=== PATIENT | male | born 1965 | race Caucasian/White ===

== ENCOUNTER 2020-08-31 07:01 | Emergency (ER) | payer OTHER ==
[2020-08-31 08:27] LABS: BASOPHIL 0.3 % (0-2); EOSINOPHIL 1.7 % (0-5); HCT 44.5 % (42.0-52.0); HGB 14.6 g/dl (13.2-18.0); LYMPHOCYTE 22.5 % (15-48); MCH 29.7 pg (25.0-31.0); MCHC 32.8 g/dL (32.0-36.0); MCV 90.4 fL (78.0-100.0); MONOCYTE 9.3 % (0-12); NRBC 0; PLT 167 K/uL (150-400); RBC 4.92 M/uL (4.70-6.00); RDW 12.9 % (11.5-14.0); WBC 8.6 K/uL (4.0-10.5)
[2020-08-31 08:29] LABS: BILIRUBIN NEGATIVE (NEGATIVE); BLOOD NEGATIVE Ery/uL (NEGATIVE); CLARITY CLEAR (CLEAR); COLOR YELLOW (YELLOW); GLUCOSE (U) NORMAL (NORMAL); LEUKOCYTES NEGATIVE Leu/uL (NEGATIVE); NITRITE NEGATIVE (NEGATIVE); PROTEIN NEGATIVE (NEGATIVE); SPECIFIC GRAVITY <=1.005 (1.001-1.030); UROBILINOGEN 0.2 mg/dL (0.2-1.0)
[2020-08-31 08:58] LABS: ALBUMIN 3.4 g/dL (3.4-5.0); ALKALINE PHOSHATASE 82 U/L (46-116); ALT 23 U/L (16-63); AST 15 U/L (15-37); BILIRUBIN - TOTAL 0.5 mg/dL (0.2-1.0); BUN 15 mg/dL (7-18); BUN/CREAT RATIO (CALC) 18.1 RATIO; CHLORIDE 106 mmol/L (98-107); CO2 (BICARBONATE) 28 mmol/L (21-32); CREATININE 0.83 mg/dL (0.67-1.17); GLOBULIN (CALCULATION) 2.9 g/dL; GLUCOSE 99 mg/dL (74-106); POTASSIUM 4.3 mmol/L (3.5-5.1); TOTAL PROTEIN 6.3 g/dL (6.4-8.2)
== END 2020-08-31 09:27 | disposition home or self-care (01) ==
LOC: FER 07:01
PROVIDERS: Emergency Medicine
DX: I10 Essential (primary) hypertension (principal); F17.210 Nicotine dependence, cigarettes, uncomplicated; Z79.899 Other long term (current) drug therapy
CPT/HCPCS: 36415; 71046; 80053; 81003; 84439; 84443; 84484; 85025; 93005

== ENCOUNTER 2021-08-19 09:52 | Emergency (ER) | payer OTHER ==
[2021-08-19] MEDS ORDERED: METFORMIN HCL500 M1 PO (10:25)
[2021-08-19] MEDS ORDERED: LOSARTAN POTASS25 MG PO (10:25)
[2021-08-19] MEDS ORDERED: IBUPROFEN800 M1 PO (10:26)
[2021-08-19] MEDS ORDERED: ILOTYCIN1 GM OD (11:31)
[2021-08-19] MEDS ORDERED: ACULAR LS20 DROP/ML OD (11:31)
== END 2021-08-19 11:40 | disposition home or self-care (01) ==
LOC: FER 09:52
DX: T15.01XA Foreign body in cornea, right eye, initial encounter (principal); I10 Essential (primary) hypertension; E11.9 Type 2 diabetes mellitus without complications; F17.210 Nicotine dependence, cigarettes, uncomplicated